=== PATIENT | male | born 1990 ===

== ENCOUNTER 2022-01-11 16:29 | Outpatient (CLI) | payer OTHER, SELFPAY | END 2022-01-11 16:30 | disposition home or self-care (01) | PROVIDERS: PCP Physician Assistant Medical; Visit Provider Physician Assistant Medical | DX: G47.9 Sleep disorder, unspecified (principal); F41.9 Anxiety disorder, unspecified; R35.0 Frequency of micturition; F32.A Depression, unspecified | CPT/HCPCS: 82728; 84443 ==